=== PATIENT | female | born 1965 | race Caucasian/White ===

== ENCOUNTER 2017-06-08 12:00 | Inpatient (IN) | payer OTHER, MEDICARE ==
[~2017-06-08] VITALS: Ht 167.6 cm; Wt 72.6 kg
[2017-06-08] MEDS ORDERED: SODIUM CHLORIDE 0.9% 1,000 ML IVB ONE (12:33)
[2017-06-08] MEDS ORDERED: LEVOFLOXACIN 500 MG/100 ML PREMIX BAG IV ONE (12:45)
[2017-06-08 12:55] LABS: Alanine Aminotransferase 43 U/L (13-56); Alkaline Phosphatase 121 U/L (45-117); Anion Gap 10 (5-15); Aspartate Aminotransferase 43 U/L (15-37); BUN/Creatinine Ratio 10.5; Bilirubin, Total 0.4 mg/dL (0.2-1.0); Blood Alcohol < 3.0 mg/dL (0-5); Blood Urea Nitrogen 9 mg/dL (7-18); Calcium 9.2 mg/dL (8.5-10.1); Carbon Dioxide 23 mmol/L (21-32); Chloride 112 mmol/L (98-107); GFR African American 89 mL/min; GFR Non-African American 73 mL/min; Glucose 124 mg/dL (74-106); Potassium 4.6 mmol/L (3.5-5.1); Sodium 145 mmol/L (136-145); Total Protein 6.7 g/dL (6.4-8.2)
[2017-06-08 12:58] LABS: Basophils # (auto) 0.1 uL; Basophils % (auto) 1.1 % (0.0-2.0); Eosinophils # (auto) 0.1 uL; Hematocrit 46.4 % (36.0-46.0); Hemoglobin 15.4 g/dL (12.2-16.2); Lymphocytes # (auto) 1.3 uL; Lymphocytes % (auto) 28.2 % (10.0-50.0); Mean Corpuscular Hemoglobin 31.5 pg (28.0-32.0); Mean Corpuscular Hgb Conc. 33.1 g/dL (32.0-36.0); Mean Corpuscular Volume 95.1 fL (80.0-100.0); Monocytes # (auto) 0.4 uL; Monocytes % (auto) 8.5 % (0.0-12.0); Neutrophils # (auto) 2.9 uL; Neutrophils % (auto) 60.2 % (37.0-80.0); Nucleated Red Blood Cells % 0.8 %; Platelet Count (auto) 186 10^3/uL (140-450); Red Blood Cells 4.88 10^6/uL (4.0-5.20); Red Cell Distribution Width 14.4 % (11.8-14.3); White Blood Cell 4.8 10^3/uL (4.4-10.8)
[2017-06-08 13:12] LABS: Urine Bacteria NONE SEEN /hpf (None Seen); Urine Blood Negative /uL (Negative); Urine Mucus FEW (None Seen); Urine WBC 1 /hpf (0 - 5)
[2017-06-08 13:27] LABS: Alcohol, Urine < 3.0 mg/dL (0-5); Amphetamine Screen, Urine NEGATIVE (NEGATIVE); Barbiturate Scree,Urine NEGATIVE (NEGATIVE); Benzodiazephine Screen, Urine NEGATIVE (NEGATIVE); Cannabinoid Screen, Urine NEGATIVE (NEGATIVE); Cocaine Screen, Urine NEGATIVE (NEGATIVE); Opiate Scree,Urine NEGATIVE (NEGATIVE); Phencyclidine Screen, Urine NEGATIVE (NEGATIVE)
[2017-06-08 13:32] LABS: Lactic Acid w/Reflex 2.4 mmol/L (0.4-2.0)
[2017-06-08] MEDS ORDERED: LACTULOSE 20Gm/30ML SOLN PO PRN (14:15)
[2017-06-08] MEDS ORDERED: PROMETHAZINE HCL 25 MG/ML 1ML IV PRN (14:15)
[2017-06-08] MEDS ORDERED: NITROGLYCERIN 0.4 MG SL TAB SL PRN (14:15)
[2017-06-08] MEDS ORDERED: DEXTROSE (50%) 50ML SYRG IV PRN (14:15)
[2017-06-08] MEDS ORDERED: LORazepam 2MG/ML-1ML VIAL IV PRN ×2 (14:15→19:45)
[2017-06-08] MEDS ORDERED: MORPHINE SULFATE 4 MG/ML SYR/VIAL IV PRN ×3 (14:15)
[2017-06-08] MEDS: SODIUM CHLORIDE 0.9% 1,000 ML IV SCH (14:35)
[2017-06-08 16:14] LABS: Folate (Folic Acid) 15.39 ng/mL (5.38-24)
[2017-06-08] MEDS: InsuLIN REG 1unit/0.01ml Soln (100units/ml) SC SCH (18:00)
[2017-06-08] MEDS: ACCU-CHEK COMFORT CURVE STRIP VI SCH (18:08)
[2017-06-08 19:23] LABS: INR 0.92 (0.9-1.15); Partial Thromboplastin Time 23.8 sec (22.64-33.71)
[2017-06-08 20:00] VITALS: BP 123/53
[2017-06-08] MEDS ORDERED: QUEtiapine FUMARATE 100 MG TAB PO SCH (22:00)
[2017-06-08] MEDS ORDERED: LURA40TA PO (23:19)
[2017-06-08] MEDS ORDERED: GABA-339 PO (23:19)
[2017-06-08] MEDS ORDERED: PANT40TA2 PO (23:30)
[2017-06-08] MEDS: GABAPENTIN 300 MG CAP PO SCH (23:30)
[2017-06-08] MEDS ORDERED: LAMO200T34 PO (23:30)
[2017-06-08] MEDS ORDERED: MELA3TAB27 PO (23:30)
[2017-06-08] MEDS ORDERED: BRIM0.159 OP (23:30)
[2017-06-09] VITALS: BP 127/85
[2017-06-09] MEDS: ACCU-CHEK COMFORT CURVE STRIP VI SCH ×5 (00:25→23:40)
[2017-06-09] MEDS ORDERED: INSR100KIT SC (00:50)
[2017-06-09] MEDS ORDERED: INSREG3 SC (00:50)
[2017-06-09] MEDS ORDERED: INSUINJ2 SC ×2 (00:50)
[2017-06-09] MEDS ORDERED: TOPI100T68 PO (01:03)
[2017-06-09] MEDS ORDERED: TIOTCAP IN (01:03)
[2017-06-09] MEDS ORDERED: ADAL1INJ3 SC ×2 (01:03→03:24)
[2017-06-09] MEDS ORDERED: MAGN400C3 PO (01:03)
[2017-06-09] MEDS ORDERED: ATO40T PO (01:05)
[2017-06-09] MEDS ORDERED: MONT10TA34 PO (01:05)
[2017-06-09] MEDS ORDERED: BACL10TA PO (03:18)
[2017-06-09] MEDS ORDERED: QUET50TA PO (03:18)
[2017-06-09] MEDS ORDERED: GABA-339 PO (03:18)
[2017-06-09] MEDS ORDERED: MEMA10TA PO (03:18)
[2017-06-09] MEDS ORDERED: IBUP800T24 PO (03:18)
[2017-06-09] MEDS ORDERED: GABA800T97 PO (03:21)
[2017-06-09] MEDS ORDERED: HYDR-4683 PO (03:24)
[2017-06-09] MEDS: SODIUM CHLORIDE 0.9% 1,000 ML IV SCH ×2 (03:33→16:53)
[2017-06-09 04:00] VITALS: BP 109/70
[2017-06-09] MEDS: InsuLIN REG 1unit/0.01ml Soln (100units/ml) SC SCH ×5 (06:00→23:40)
[2017-06-09 06:21] LABS: Basophils # (auto) 0 uL; Basophils % (auto) 0.8 % (0.0-2.0); Eosinophils # (auto) 0.4 uL; Eosinophils % (auto) 7.7 % (0.0-7.0); Hemoglobin 14.2 g/dL (12.2-16.2); Lymphocytes # (auto) 1.3 uL; Lymphocytes % (auto) 25.4 % (10.0-50.0); Mean Corpuscular Hemoglobin 31.4 pg (28.0-32.0); Mean Corpuscular Hgb Conc. 33.8 g/dL (32.0-36.0); Mean Corpuscular Volume 92.9 fL (80.0-100.0); Monocytes # (auto) 0.4 uL; Monocytes % (auto) 7.7 % (0.0-12.0); Neutrophils # (auto) 3.1 uL; Neutrophils % (auto) 58.4 % (37.0-80.0); Nucleated Red Blood Cells % 0.1 %; Platelet Count (auto) 194 10^3/uL (140-450); Red Blood Cells 4.52 10^6/uL (4.0-5.20); White Blood Cell 5.2 10^3/uL (4.4-10.8)
[2017-06-09] MEDS: GABAPENTIN 300 MG CAP PO SCH (06:30)
[2017-06-09 06:56] LABS: Albumin 3.4 g/dL (3.4-5.0); BUN/Creatinine Ratio 7.7; Bilirubin, Total 0.5 mg/dL (0.2-1.0); Calcium 8.9 mg/dL (8.5-10.1); Potassium 4.2 mmol/L (3.5-5.1); Total Protein 6.2 g/dL (6.4-8.2)
[2017-06-09 08:00] VITALS: BP 110/74
[2017-06-09] MEDS: ASPirin 81 mg TAB PO SCH (11:02)
[2017-06-09] MEDS: MONTELUKAST SODIUM 10 MG TAB PO SCH (11:03)
[2017-06-09] MEDS: MEMANTINE HCL 5 MG TAB PO SCH ×2 (11:03→22:40)
[2017-06-09] MEDS: PANTOPRAZOLE 40 MG TAB PO SCH ×2 (11:03→22:40)
[2017-06-09] MEDS: CYANOCOBALAMIN 500 MCG TAB PO SCH (11:03)
[2017-06-09] MEDS: MAGNESIUM OXIDE 400 MG TAB PO SCH ×2 (11:03→22:43)
[2017-06-09] MEDS: ENOXAPARIN SOD 40 MG/0.4 ML SYRINGE SC SCH (11:03)
[2017-06-09] MEDS: TOPIRAMATE 100 MG TAB PO SCH (11:38)
[2017-06-09 11:50] VITALS: BP 143/96
[2017-06-09] MEDS ORDERED: DICYCLOMINE HCL 10 MG CAP PO SCH (12:00)
[2017-06-09] MEDS ORDERED: BACLOFEN 10 MG TAB PO SCH (14:00)
[2017-06-09] MEDS: NITROFURANTOIN (MONO) 100 mg CAP PO SCH ×2 (14:46→22:39)
[2017-06-09] MEDS ORDERED: BACLOFEN 10 MG TAB PO PRN (14:47)
[2017-06-09] MEDS ORDERED: ACETAMINOPHEN 500 MG TAB PO PRN (16:00)
[2017-06-09 17:00] VITALS: BP 148/91
[2017-06-09] MEDS: DICYCLOMINE HCL 10 MG CAP PO SCH ×2 (18:01→22:41)
[2017-06-09 21:42] VITALS: BP 124/91
[2017-06-09] MEDS: BRIMONIDINE 0.15% OP SCH (22:00)
[2017-06-09] MEDS ORDERED: LATUDA 40 MG PO SCH (22:00)
[2017-06-09] MEDS: EYE OP SCH (22:00)
[2017-06-09] MEDS: ATORVASTATIN 20 MG TAB PO SCH (22:39)
[2017-06-09] MEDS: GABAPENTIN 400 MG CAP PO SCH (22:41)
[2017-06-09] MEDS: lamoTRIgine 100 MG TAB PO SCH (22:44)
[2017-06-09] MEDS: QUEtiapine FUMARATE 100 MG TAB PO SCH (22:47)
[2017-06-10 04:52] VITALS: BP 128/93
[2017-06-10] MEDS: DICYCLOMINE HCL 10 MG CAP PO SCH ×2 (06:08→11:51)
[2017-06-10] MEDS: GABAPENTIN 300 MG CAP PO SCH (06:08)
[2017-06-10] MEDS: SODIUM CHLORIDE 0.9% 1,000 ML IV SCH ×2 (06:09→19:26)
[2017-06-10] MEDS: ACCU-CHEK COMFORT CURVE STRIP VI SCH ×3 (06:09→17:38)
[2017-06-10] MEDS: InsuLIN REG 1unit/0.01ml Soln (100units/ml) SC SCH ×3 (06:12→17:38)
[2017-06-10] MEDS: ENOXAPARIN SOD 40 MG/0.4 ML SYRINGE SC SCH (09:02)
[2017-06-10] MEDS: NITROFURANTOIN (MONO) 100 mg CAP PO SCH ×2 (09:02→21:01)
[2017-06-10 09:03] VITALS: BP 123/84
[2017-06-10] MEDS: PANTOPRAZOLE 40 MG TAB PO SCH ×2 (09:03→21:01)
[2017-06-10] MEDS: ASPirin 81 mg TAB PO SCH (09:03)
[2017-06-10] MEDS: TOPIRAMATE 100 MG TAB PO SCH (09:03)
[2017-06-10] MEDS: MAGNESIUM OXIDE 400 MG TAB PO SCH ×2 (09:03→21:02)
[2017-06-10] MEDS: MEMANTINE HCL 5 MG TAB PO SCH ×2 (09:03→21:02)
[2017-06-10] MEDS: CYANOCOBALAMIN 500 MCG TAB PO SCH (09:04)
[2017-06-10] MEDS: MONTELUKAST SODIUM 10 MG TAB PO SCH (09:04)
[2017-06-10] MEDS: EYE OP SCH ×2 (09:04→21:01)
[2017-06-10] MEDS: BRIMONIDINE 0.15% OP SCH ×2 (09:04→21:01)
[2017-06-10 12:02] VITALS: BP 107/67
[2017-06-10] MEDS ORDERED: LOPERAMIDE HCL 2 MG CAP PO PRN (14:30)
[2017-06-10] MEDS: BISMUTH SUBSALICYLATE 262MG/15ml ORAL Susp PO SCH (14:57)
[2017-06-10 17:38] VITALS: BP 114/70
[2017-06-10] MEDS: GABAPENTIN 400 MG CAP PO SCH (21:01)
[2017-06-10] MEDS: ATORVASTATIN 20 MG TAB PO SCH (21:02)
[2017-06-10] MEDS: QUEtiapine FUMARATE 100 MG TAB PO SCH (21:03)
[2017-06-10] MEDS: lamoTRIgine 100 MG TAB PO SCH (21:03)
[2017-06-10 22:12] VITALS: BP 136/74
[2017-06-11] MEDS: BISMUTH SUBSALICYLATE 262MG/15ml ORAL Susp PO SCH ×3 (02:00→06:00)
[2017-06-11 04:53] VITALS: BP 103/63
[2017-06-11] MEDS: InsuLIN REG 1unit/0.01ml Soln (100units/ml) SC SCH ×3 (06:00→11:22)
[2017-06-11] MEDS: GABAPENTIN 300 MG CAP PO SCH (06:17)
[2017-06-11] MEDS: ACCU-CHEK COMFORT CURVE STRIP VI SCH ×3 (06:18→11:21)
[2017-06-11] MEDS: BISMUTH SUBSALICYLATE 262MG/15ml ORAL Susp PO PRN ×2 (08:14→13:40)
[2017-06-11] MEDS: SODIUM CHLORIDE 0.9% 1,000 ML IV SCH (08:58)
[2017-06-11 09:36] VITALS: BP 106/75
[2017-06-11] MEDS: EYE OP SCH (10:00)
[2017-06-11] MEDS: BRIMONIDINE 0.15% OP SCH (10:00)
[2017-06-11] MEDS: NITROFURANTOIN (MONO) 100 mg CAP PO SCH (10:06)
[2017-06-11] MEDS: PANTOPRAZOLE 40 MG TAB PO SCH (10:06)
[2017-06-11] MEDS: TOPIRAMATE 100 MG TAB PO SCH (10:06)
[2017-06-11] MEDS: MONTELUKAST SODIUM 10 MG TAB PO SCH (10:06)
[2017-06-11] MEDS: MEMANTINE HCL 5 MG TAB PO SCH (10:06)
[2017-06-11] MEDS: MAGNESIUM OXIDE 400 MG TAB PO SCH (10:06)
[2017-06-11] MEDS: ASPirin 81 mg TAB PO SCH (10:06)
[2017-06-11] MEDS: ENOXAPARIN SOD 40 MG/0.4 ML SYRINGE SC SCH (10:07)
[2017-06-11] MEDS: CYANOCOBALAMIN 500 MCG TAB PO SCH (10:07)
[2017-06-11 12:28] VITALS: BP 103/65
== END 2017-06-11 14:30 | disposition home or self-care (01) | DRG 93 ==
LOC: EDBD 12:00 → ER 12:00 → TELE 12:01 → DOU IN ICU 20:00 → TELE-EAST 06-09 14:50
PROVIDERS: ADMIT Internal Medicine; ATTEND Family Medicine
DX: G92 Toxic encephalopathy (principal); E11.9 Type 2 diabetes mellitus without complications; F31.9 Bipolar disorder, unspecified; G25.81 Restless legs syndrome; G47.00 Insomnia, unspecified; M19.90 Unspecified osteoarthritis, unspecified site; R79.89 Other specified abnormal findings of blood chemistry; Z79.4 Long term (current) use of insulin; Z82.49 Family history of ischemic heart disease and other diseases of the circulatory system; Z97.0 Presence of artificial eye; Z90.49 Acquired absence of other specified parts of digestive tract; Z88.5 Allergy status to narcotic agent
CPT/HCPCS: 36415; 70450; 71045; 80053; 80061; 80307; 80320; 81001; 82607; 82746; 82962; 83036; 83605; 83735; 84443; 85025; 85610; 85652; 85730; 87040; 87081; 87086; 93005; 93306; 93886; 94761; 95819; 96361; 96374; 97163; J1815; J1956